=== PATIENT | male | born 1985 | race Caucasian/White ===

== ENCOUNTER 2017-01-29 08:17 | Day surgery (SDC) | payer MEDICAID, OTHER ==
[~2017-01-29] VITALS: Ht 165.1 cm; Wt 70.0 kg
[~2017-01-29 08:17] MED LIST: IBUP-2070 PO
[2017-01-29] MEDS ORDERED: SODIUM CHLORIDE 0.9% 1,000 ML IV ONE ×2 (08:48→09:00)
[2017-01-29] MEDS ORDERED: LIDOCAINE HCL/PF 1% 30 ML VIAL ONE (10:12)
[2017-01-29 10:22] VITALS: BP 162/77
[2017-01-29] MEDS ORDERED: BUPIVACAINE HCL/PF 0.75% 10 ML VIAL ONE (10:25)
[2017-01-29] MEDS ORDERED: IOHEXOL 300 MG/ML 10 ML VIAL ONE (10:26)
[2017-01-29] MEDS ORDERED: SODIUM BICARBONATE 50 MEQ/50 ML VIAL ONE (10:26)
[2017-01-29 10:31] VITALS: BP 157/68
[2017-01-29] MEDS ORDERED: IOHEXOL 300 MG/ML 10 ML VIAL IARTIC ONE (10:45)
[2017-01-29] MEDS ORDERED: LIDOCAINE 1% 30 ML/SOD BICARB 8.4% 4 ML SQ ONE (10:45)
== END 2017-01-29 11:30 | disposition home or self-care (01) ==
LOC: SDS 08:17
PROVIDERS: ATTEND Physical Medicine & Rehabilitation Pain Medicine
DX: M54.16 Radiculopathy, lumbar region (principal); M54.30 Sciatica, unspecified side
CPT/HCPCS: 64483; J1040; J3490 ×3; J7030; Q9967